=== PATIENT | male | born 1980 | race African-American/Black ===

== ENCOUNTER 2017-02-23 00:22 | Emergency (ER) | payer OTHER ==
[~2017-02-23] VITALS: Ht 175.3 cm; Wt 93.0 kg
[~2017-02-23 00:22] MED LIST: FIORICET PO; ULTRAM50 MG PO
[2017-02-23] MEDS ORDERED: MOTRIN800 MG PO (01:06)
[2017-02-23] MEDS ORDERED: TRAMADOL HYDROC50 MG PO (01:06)
[2017-02-23 02:08] VITALS: BP 135/97
== END 2017-02-23 02:08 | disposition home or self-care (01) | DRG 103 ==
LOC: ED 00:22
DX: R51 Headache (principal); R11.2 Nausea with vomiting, unspecified

== ENCOUNTER 2017-11-13 21:13 | Emergency (ER) | payer SELFPAY ==
[~2017-11-13] VITALS: Ht 175.3 cm; Wt 89.0 kg
[~2017-11-13 21:13] MED LIST changes: +MOTRIN800 MG PO; +TRAMADOL HYDROC50 MG PO
[2017-11-13 22:21] LABS: HEMATOCRIT 40.7 % (39.0-50.0); HEMOGLOBIN 13.3 g/dl (14.0-18.0); IMMATURE GRANULOCYTES 0.4 % (0.0-1.0); MEAN CELL VOLUME 81.6 fL CALC (80.0-100.0); MEAN CORPUSCULAR HGB 26.7 pG CALC (26.0-32.0); MEAN CORPUSCULAR HGB CONC 32.7 g/L CALC (32.0-36.0); NEUT# 9.91 thou/uL (1.82-7.42); RED BLOOD COUNT 4.99 mill/uL (4.70-6.10); RED CELL DISTRI WIDTH 13.8 % (11.5-15.5)
[2017-11-13 22:35] LABS: ALBUMIN 4.1 g/dL (3.2-5.0); ALKALINE PHOSPHATASE 134 u/l (38-126); ANION GAP 15 (6-22 (CALC)); BILIRUBIN, TOTAL 0.4 mg/dL (0.0-1.4); BUN 6 mg/dL (9-20); BUN/CREATININE RATIO 5 (12-20 (CALC)); CARBON DIOXIDE 27 mmol/l (22-30); CHLORIDE 104 mmol/l (95-108); CREATININE 1.2 mg/dL (0.7-1.3); GFR > 60 ML/MIN (>=60 (CALC)); GFR FOR AFR.AMER. > 60 ML/MIN (>=60 (CALC)); GLUCOSE 99 mg/dL (75-110); POTASSIUM 3.8 mmol/l (3.5-5.1); SGOT/AST 18 u/l (17-59); SGPT/ALT 26 u/l (21-72); SODIUM 143 mmol/l (137-146); TOTAL PROTEIN 6.7 g/dL (6.3-8.2)
[2017-11-13 22:42] LABS: URINE BILIRUBIN - DIPSTICK NEGATIVE (NEGATIVE); URINE BLOOD DIPSTICK NEGATIVE (NEGATIVE); URINE COLOR YELLOW; URINE GLUCOSE - DIPSTICK NEGATIVE (NEGATIVE); URINE KETONE NEGATIVE (NEGATIVE); URINE NITRITE - DIPSTICK NEGATIVE (Negative); URINE PROTEIN - DIPSTICK NEGATIVE (NEG-TRACE); URINE SPECIFIC GRAVITY 1.015; URINE UROBILINOGEN - DIPSTICK 0.2 E.U./dL (0.2)
[2017-11-13 22:43] LABS: URINE CLARITY TURBID; URINE LEUK ESTERASE MODERATE (NEGATIVE)
[2017-11-13 22:45] LABS: BARBITURATES NEGATIVE (NEGATIVE); COCAINE POSITIVE (NEGATIVE); METHADONE NEGATIVE (NEGATIVE); OXCYCODONE NEGATIVE (NEGATIVE); TETRAHYDROCANNABIONOL POSITIVE (NEGATIVE); TRICYLIC ANTIDEPRESSANTS NEGATIVE (NEGATIVE)
[2017-11-13 22:47] LABS: MYOGLOBIN 33 ng/mL (0 - 121)
[2017-11-13 22:54] LABS: URINE BACTERIA RARE hpf; URINE SQUAMOUS EPITHELIAL CELL FEW EPI/hpf (0-FEW); URINE WBC 50-100 WBC/hpf (0-5)
[2017-11-13] MEDS ORDERED: CIPROFLOXACN500 MG PO (23:25)
[2017-11-13 23:39] VITALS: BP 128/79
== END 2017-11-13 23:40 | disposition home or self-care (01) | DRG 948 ==
LOC: ED 21:13
PROVIDERS: Emergency Medicine
DX: R53.1 Weakness (principal); F12.10 Cannabis abuse, uncomplicated; N39.0 Urinary tract infection, site not specified; F14.10 Cocaine abuse, uncomplicated; R42 Dizziness and giddiness; F17.210 Nicotine dependence, cigarettes, uncomplicated; Y92.89 Other specified places as the place of occurrence of the external cause

== ENCOUNTER 2018-02-20 01:14 | Emergency (ER) | payer SELFPAY ==
[~2018-02-20] VITALS: Ht 175.3 cm; Wt 94.0 kg
[~2018-02-20 01:14] MED LIST changes: +CIPROFLOXACN500 MG PO
[2018-02-20] MEDS ORDERED: B/P MED (01:28)
[2018-02-20 02:17] LABS: INFLUENZA A NONE DETECTED (NONE DETECT); INFLUENZA B NONE DETECTED (NONE DETECT)
[2018-02-20] MEDS ORDERED: FIORICET PO (02:32)
[2018-02-20] MEDS ORDERED: ZPAK PO (02:32)
[2018-02-20 03:05] VITALS: BP 151/101
== END 2018-02-20 03:05 | disposition home or self-care (01) | DRG 153 ==
LOC: ED 01:14
PROVIDERS: Emergency Medicine
DX: J06.9 Acute upper respiratory infection, unspecified (principal); F17.210 Nicotine dependence, cigarettes, uncomplicated; R51 Headache; I10 Essential (primary) hypertension

== ENCOUNTER 2021-05-11 17:53 | Emergency (ER) | payer SELFPAY ==
[~2021-05-11] VITALS: Ht 175.3 cm; Wt 100.0 kg
[~2021-05-11 17:53] MED LIST changes: +B/P MED; +ZPAK PO
[2021-05-11] MEDS ORDERED: FIORICET PO (19:49)
[2021-05-11] MEDS ORDERED: REGLAN10 MG PO (19:49)
[2021-05-11 19:57] VITALS: BP 162/79
== END 2021-05-11 20:00 | disposition home or self-care (01) | DRG 103 ==
LOC: ED 17:53
DX: R51.9 Headache, unspecified (principal); R11.10 Vomiting, unspecified; I10 Essential (primary) hypertension; F17.210 Nicotine dependence, cigarettes, uncomplicated

== ENCOUNTER 2022-01-22 13:44 | Emergency (ER) | payer SELFPAY ==
[~2022-01-22] VITALS: Ht 175.3 cm; Wt 88.0 kg
[2022-01-22] VITALS (7 sets, daily range): BP systolic 126–151; BP diastolic 86–106
[~2022-01-22 13:44] MED LIST changes: +REGLAN10 MG PO
[2022-01-22] MEDS ORDERED: LISINOPRIL10 MG PO (14:43)
[2022-01-22 14:49] LABS: HEMATOCRIT 39.8 % (39.0-50.0); HEMOGLOBIN 12.5 g/dl (14.0-18.0); IMMATURE GRANULOCYTES 0.5 % (0.0-5.0); MEAN CELL VOLUME 83.3 fL CALC (80.0-100.0); MEAN CORPUSCULAR HGB 26.2 pG CALC (26.0-32.0); MEAN CORPUSCULAR HGB CONC 31.4 g/dL CAL (32.0-36.0); NEUT# 6.23 thou/uL (1.82-7.42); RED BLOOD COUNT 4.78 mill/uL (4.70-6.10); RED CELL DISTRI WIDTH 13.9 % (11.5-15.5)
[2022-01-22 14:56] LABS: ALBUMIN 3.7 g/dL (3.2-5.0); ALKALINE PHOSPHATASE 86 u/l (38-126); AMYLASE 57 u/l (30-110); BILIRUBIN, TOTAL 0.5 mg/dL (0.0-1.4); BUN 7 mg/dL (9-20); BUN/CREATININE RATIO 7 (12-20 (CALC)); CARBON DIOXIDE 29 mmol/l (22-30); CHLORIDE 99 mmol/l (95-108); CREATININE 1.1 mg/dL (0.7-1.3); GFR > 60 ML/MIN (>=60 (CALC)); GFR FOR AFR.AMER. > 60 ML/MIN (>=60 (CALC)); LIPASE 53 u/l (23-300); SGOT/AST 21 u/l (17-59); TOTAL PROTEIN 6.8 g/dL (6.3-8.2)
[2022-01-22 14:59] LABS: ANION GAP 11 (6-22 (CALC)); SODIUM 135 mmol/l (137-146)
[2022-01-22] MEDS ORDERED: PROTONIX40 MG PO (16:15)
== END 2022-01-22 16:35 | disposition home or self-care (01) | DRG 379 ==
LOC: ED 13:44
PROVIDERS: Nurse Practitioner
DX: K92.2 Gastrointestinal hemorrhage, unspecified (principal); I10 Essential (primary) hypertension; F17.200 Nicotine dependence, unspecified, uncomplicated
CPT/HCPCS: S0164

== ENCOUNTER 2022-11-27 21:53 | Observation (INO) | payer SELFPAY ==
[~2022-11-27] VITALS: Ht 175.3 cm; Wt 65.0 kg
[~2022-11-27 21:53] MED LIST changes: +LISINOPRIL10 MG PO; +PROTONIX40 MG PO
[2022-11-27 22:04] VITALS: BP 150/98
[2022-11-27 22:18] LABS: BASO% 0.1 % (0-3); EOS% 0.1 % (0-8); HEMATOCRIT 39.5 % (39.0-50.0); HEMOGLOBIN 12.5 g/dl (14.0-18.0); IMMATURE GRANULOCYTES 0.6 % (0.0-5.0); LYMPH% 16.2 % (15-41); MEAN CORPUSCULAR HGB 25.9 pG CALC (26.0-32.0); MEAN CORPUSCULAR HGB CONC 31.6 g/dL CAL (32.0-36.0); MONO% 6.1 % (2-13); NEUT# 13.64 thou/uL (1.82-7.42); NEUT% 76.9 % (42-76); RED BLOOD COUNT 4.82 mill/uL (4.70-6.10); RED CELL DISTRI WIDTH 13.9 % (11.5-15.5)
[2022-11-27 22:36] LABS: ALBUMIN 4.3 g/dL (3.2-5.0); ALKALINE PHOSPHATASE 91 u/l (38-126); AMYLASE 71 u/l (30-110); ANION GAP 12 (6-22 (CALC)); BILIRUBIN, TOTAL 0.8 mg/dL (0.2-1.3); BUN 7 mg/dL (9-20); BUN/CREATININE RATIO 7 (12-20 (CALC)); CARBON DIOXIDE 25 mmol/l (22-30); CHLORIDE 101 mmol/l (95-108); GFR FOR AFR.AMER. > 60 ML/MIN (>=60 (CALC)); GFR OTHER RACES > 60 ML/MIN (>=60 (CALC)); LIPASE 30 u/l (23-300); POTASSIUM 3.8 mmol/l (3.5-5.1); SGOT/AST 23 u/l (17-59); SODIUM 134 mmol/l (137-146); TOTAL PROTEIN 7.4 g/dL (6.3-8.2)
[2022-11-27 23:16] VITALS: BP 155/101
[2022-11-27 23:34] LABS: URINE BILIRUBIN - DIPSTICK NEGATIVE (NEGATIVE); URINE BLOOD DIPSTICK TRACE-INTACT (NEGATIVE); URINE COLOR YELLOW; URINE GLUCOSE - DIPSTICK NEGATIVE (NEGATIVE); URINE KETONE NEGATIVE (NEGATIVE); URINE LEUK ESTERASE NEGATIVE (NEGATIVE); URINE NITRITE - DIPSTICK NEGATIVE (Negative); URINE PROTEIN - DIPSTICK NEGATIVE (NEG-TRACE); URINE UROBILINOGEN - DIPSTICK 0.2 E.U./dL (0.2)
[2022-11-28] VITALS (8 sets, daily range): BP systolic 104–146; BP diastolic 68–107
[2022-11-28 05:19] LABS: EOS% 0.1 % (0-8); HEMATOCRIT 36.4 % (39.0-50.0); HEMOGLOBIN 11.7 g/dl (14.0-18.0); IMMATURE GRANULOCYTES 0.2 % (0.0-5.0); LYMPH% 19.9 % (15-41); MEAN CELL VOLUME 82.7 fL CALC (80.0-100.0); MEAN CORPUSCULAR HGB 26.6 pG CALC (26.0-32.0); MEAN CORPUSCULAR HGB CONC 32.1 g/dL CAL (32.0-36.0); MONO% 8.9 % (2-13); NEUT# 12.25 thou/uL (1.82-7.42); NEUT% 70.9 % (42-76); RED BLOOD COUNT 4.4 mill/uL (4.70-6.10); RED CELL DISTRI WIDTH 13.8 % (11.5-15.5)
[2022-11-28 05:35] LABS: ALBUMIN 3.6 g/dL (3.2-5.0); ALKALINE PHOSPHATASE 80 u/l (38-126); ANION GAP 11 (6-22 (CALC)); BILIRUBIN, TOTAL 0.8 mg/dL (0.2-1.3); BUN 6 mg/dL (9-20); BUN/CREATININE RATIO 5 (12-20 (CALC)); CARBON DIOXIDE 26 mmol/l (22-30); CHLORIDE 103 mmol/l (95-108); GFR FOR AFR.AMER. > 60 ML/MIN (>=60 (CALC)); GFR OTHER RACES > 60 ML/MIN (>=60 (CALC)); POTASSIUM 3.9 mmol/l (3.5-5.1); SGOT/AST 17 u/l (17-59); SODIUM 135 mmol/l (137-146); TOTAL PROTEIN 6.4 g/dL (6.3-8.2)
[2022-11-28] MEDS ORDERED: PERCOCET 5/321 COMBO PO (12:37)
== END 2022-11-28 18:50 | disposition home or self-care (01) | DRG 343 ==
LOC: ED 21:53 → ED-I 11-28 → ED 11-28 00:12 → MS2 11-28 00:13
PROVIDERS: Emergency Medicine; Nurse Practitioner Family; ADMIT Internal Medicine; ATTEND Internal Medicine
PROC: 0DTJ4ZZ Resection of Appendix, Percutaneous Endoscopic Approach (ICD-10-PCS; principal; 2022-11-28)
DX: K35.30 Acute appendicitis with localized peritonitis, without perforation or gangrene (principal); I10 Essential (primary) hypertension; F17.200 Nicotine dependence, unspecified, uncomplicated; Z20.822 Contact with and (suspected) exposure to COVID-19
CPT/HCPCS: G0378; J1100; J1956; Q9967